=== PATIENT | female | born 1945 | race Caucasian/White ===

== ENCOUNTER → 2017-10-27 14:26 | Outpatient (CLI) | payer MEDICARE, BC, SELFPAY ==
--- NOTE | 2017-10-27 14:31 | VDLE_ITS ---
Reason For Study: LEG PAIN AND SWELLING RIGHT LEFT GSV is normal. GSV is normal. CFV is compressible, spontaneous, phasic, CFV is compressible, spontaneous, phasic, competent and demonstrates normal competent, and demonstrates normal augmentation. augmentation. FV is compressible, spontaneous, phasic, FV is compressible, spontaneous, phasic, competent and demonstrates normal competent and demonstrates normal augmentation. augmentation. POP V is compressible, spontaneous, phasic, POP V is compressible, spontaneous, phasic, competent and demonstrates normal competent and demonstrates normal augmentation. augmentation. T/P Trunk is compressible. T/P Trunk is compressible. PTV is compressible. PTV is compressible. RT PerV is compressible. LT PerV is compressible. Procedure Exam performed in department. A preliminary report was called and/or faxed to Dr. Macias. Interpretation Summary Deep veins of the lower extremities are bilaterally patent and compressible segmentally. There is no evidence of deep vein thrombosis on either side. Valvular competence appears intact within the proximal deep venous systems bilaterally. The greater saphenous veins appear bilaterally patent and compressible segmentally. Ordering Physician: Brandon Macias Performed By: Angelic Avelar RVT
== END ==
PROVIDERS: Family Provider Family Medicine; PCP Family Medicine; Visit Provider Family Medicine
DX: M79.661 Pain in right lower leg (principal); M79.662 Pain in left lower leg
CPT/HCPCS: 93970

== ENCOUNTER → 2018-10-26 14:57 | Outpatient (CLI) | payer MEDICARE, BC, SELFPAY ==
--- NOTE | 2018-10-26 15:04 | BI_ITS ---
MAMMOGRAPHY - BILATERAL SCREENING REASON FOR EXAM: Female, 73 years old. Routine annual screening examination. PERTINENT HISTORY: Non-contributory. TECHNIQUE: Digital bilateral breast bashir (3D mammographic acquisition) in the CC and MLO projections. 2-D mediolateral oblique (MLO) and craniocaudad (CC) views of both breasts were obtained. CAD: Full Field Digital Mammography with Computer Added Detection was performed. COMPARISON: Comparison is made with prior study dated March 16, 2017 and December 19, 2015. FINDINGS: Breast Composition: There are scattered areas of fibroglandular density. There are no dominant masses or suspicious calcifications. Stable benign-appearing bilateral axillary lymph nodes. No other significant abnormalities are identified. There has been no significant change since the prior study. BI/SCREENING MAMM (CAD), BILAT IMPRESSION: Stable bilateral screening mammogram. Yearly follow-up mammogram recommended. (A) ASSESSMENT CATEGORY: BIRADS Category 2: Benign. A letter regarding these results will be sent to the patient by the facility within 30 days. Approximately 10% of breast cancers are not detected by mammography. A normal mammogram should not delay biopsy of a clinically suspicious abnormality. [id number] Electronically Signed: Minh Collado, at 10:52 EDT , Service support ,
== END ==
PROVIDERS: Family Provider Family Medicine; PCP Family Medicine; Visit Provider Family Medicine
DX: Z12.31 Encounter for screening mammogram for malignant neoplasm of breast (principal)
CPT/HCPCS: 77063; 77067

== ENCOUNTER 2019-10-05 13:30 | Outpatient (RCR) | payer MEDICARE, OTHER, SELFPAY ==
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
--- NOTE | 2019-10-05 13:48 | HP.PTDCSUM ---
It has been my pleasure to treat SMOOTH CASTELLANOS referred by Ez Hines MD, with the diagnosis of Dizzyness. for a total of 2 visit(s). Discharge Date: 10/05/19 Please see the following information for a summary of their discharge status. Subjective: Dizzyness is significantly improved. No real dizzyness since last time. Gets quick unsteadiness at times but was there prior to concussion. Has turned in bed without dizzyness multiple times. Life adn activities are normal at this point. Cleaned freezer this am without difficulty. CORDOVA Pain Intensity (Out of 10): 0 % Improvement: 95 Objective/Function: - B hallpike lebron. - roll test. Better balance. Feeling good and goals met. Goal 1:: Abolish vertigo when turning in bed adn bednding over. Goal Progress: Goal Met Goal 2:: Pt feel 100% back to normal Goal Progress: 95% Goal 3:: 0 score on DHI Goal Progress: Progressing Plan: d/c Discharge Comments: Will contact doctor if dizzyness returns. If there are questions or concerns regarding this patient's physical therapy, please feel free to call me at [phone]. Thank you for the referral of this patient. Sincerely, Zen Ram, DPT, OCS, CSCS
== END 2019-10-05 19:00 | disposition home or self-care (01) ==
LOC: PT 13:30
PROVIDERS: PCP Family Medicine; Referring Provider Family Medicine; Visit Provider Family Medicine
DX: R51 Headache (principal); R42 Dizziness and giddiness
CPT/HCPCS: 97161; 97530

== ENCOUNTER 2021-10-22 16:30 | Outpatient (RCR) | payer MEDICARE, OTHER, SELFPAY ==
--- NOTE | 2021-10-08 14:49 | HP.PTEVAL ---
Patient's Visit Information SMOOTH CASTELLANOS is a 76 year old F referred to Physical Therapy by Dr. Dianna Figueroa DO with a diagnosis of BPV. Date of Evaluation: 10/08/21 Physical Therapist: Zen Ram, RONDA, OCS, CSCS - Visit Plan Frequency: 1x/Week Duration: 2-4 Weeks Plan: weekly as needed 2-4 weeks for positional treatments, exercises and monitorring. Vestibular rehab as needed. - Subjective September 25 got dizzy at 3 am and it was miserable that day. Bending over has caused her ear to pop for about three weeks prior. Has h/o positional vertigo prior but not in a long time. This time leaned head to left to look at clock and everything started to spin for a few seconds. laid still and felt a bit better but was hanging on tight when she got up to go to bathroom. Bending down to sit on toilet was dizzy. Called doctor the next day and went to doctor at 5 oclock and felt better but started spinning again that evening bending to get trash out. Saw Dr. Ramirez a few days later and cleaned out ears again and treated with positional maneuver. [place] better over the next 3-4 days. [place] somewhat better since but wants to make sure with therapy as it has helped before. Still rolling L can be obnoxious and cautious getting up. Sleeping is OK. No falls other than tripping over dog. Semiretired from office job. Has not missed work as she does not go in much but some mornings not up to par. Activities are normal but has to be cautious in everything moving head. 80% better. - Objective Walks normal and transfers normal with good balance. Cervical AROM and UE AROM WFL, L shoulder painful and harder to elevate. _ R hallpike lebron. + L hallpike lebron for slight dizzyness and quick up torsional nystagmus. Treated with Demarcus and then - HD. - Balance/Special Test Scores Functional Gait Assessment Score: 29 % Disability: 3.3400 Dizziness Score: 16 - Goals Goal 1:: Pt feel dizzyness is 100% abolished. Goal Time Frame: 2-4 Weeks Goal 2:: No hesitation with ambulating while looking up. 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 Rehabilitation Potential: Good - Anticipated Interventions Patient/Client Instruction: Educate patient on: Condition, Plan of Care For the Purpose of:: To increase tolerance to activity/condition/position, To improve ability of physical actions for home/community/work/leisure Comment: vestibular ex a nd maneuvers For the Purpose of:: To increase tolerance to activity/condition/position Thank you for the opportunity to evaluate your patient. For Medicare and Medicare HMO plans, please review the plan of care and approve it. It will need to be FAXED BACK to us at [phone] for Medicare purposes. For Medicare only, by signing this I certify the plan of care. Please let me know if there are questions or concerns regarding this plan of care. Physician Signature: Date:
--- NOTE | 2021-10-22 16:53 | HP.PTDCSUM ---
It has been my pleasure to treat SMOOTH CASTELLANOS referred by Dr. Dianna Figueroa DO, with the diagnosis of BPV for a total of 2 visit(s). Discharge Date: 10/22/21 Please see the following information for a summary of their discharge status. Subjective: Dizzyness is doing pretty good. Chiropraftor yesterday with rolling and moving on table and did not notice any thing weird or dizzyness. No dizzynes since treatment two weeks ago. Not avoiding any activites. Still bends and recovers and works in house. % Improvement: 100 Objective/Function: - B hallpike lebron. able to walk and move head confidently including bending and recovering and looking up. Goal 1:: Pt feel dizzyness is 100% abolished. Goal Progress: Goal Met Goal 2:: No hesitation with ambulating while looking up. Goal Progress: Goal Met Goal 3:: DHI score 2 or better Goal Progress: Goal Met Plan: d/c If there are questions or concerns regarding this patient's physical therapy, please feel free to call me at [phone]. Thank you for the referral of this patient. Sincerely, Zen Ram, DPT, OCS, CSCS Balance/Gait/Functional tests - Balance/Special Test Scores Functional Gait Assessment Score: 29 % Disability: 3.3400 Dizziness Score: 0
== END 2021-10-22 19:00 | disposition home or self-care (01) ==
LOC: PT 16:30
PROVIDERS: PCP Family Medicine; Referring Provider Family Medicine; Visit Provider Family Medicine
DX: H81.10 Benign paroxysmal vertigo, unspecified ear (principal)
CPT/HCPCS: 97161; 97164

== ENCOUNTER 2022-04-23 13:00 | Outpatient (RCR) | payer MEDICARE, OTHER, SELFPAY ==
--- NOTE | 2022-04-17 15:02 | HP.PTEVAL ---
Patient's Visit Information SMOOTH CASTELLANOS is a 76 year old F referred to Physical Therapy by NIKKI Pacheco with a diagnosis of vertigo. Date of Evaluation: 04/17/22 Physical Therapist: Zen Ram DPT, OCS, CSCS - Visit Plan Frequency: 1-2x /Week Duration: 2-4 Weeks Plan: 1-2x/week for 2-4 weeks as needed for. positional as needed and then balance checks prior to d/c - Subjective I got dizzy rolling in bed the other day to the left. 3 weeks ago she started getting dizzy. 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 Can squat down with eyes forward without much issue. Has to be careful with bending and rolling in bed. She spins for seconds. Has to hang on to things if she is on her feet. Balance is normally pretty good. Feels pretty normal in between episodes. Gets these episodes a couple times per day with head movements. Activities are normal once she gets her bearings. No falls. - Objective Walks I, transfers I bed and chair. Cervical AROM WFL and without pain. UE AROM WFL. Balance is good back to PT. R HD + up torsional nystagmus. delayed adn 12 second duration. Treated with Zoey then better then zoey again and near gone. - L HD. - Balance/Special Test Scores Dizziness Score: 32 - Goals Goal 1:: Dizzyness abolished with bending and turning in bed Goal Time Frame: 2-4 Weeks Goal 2:: FGA score for balance 25/30 for normal for age. Goal Time Frame: 2-4 Weeks Goal 3:: Pt I management and feel 100% better Goal Time Frame: 2-4 Weeks - Rehabilitation Potential Physical Therapy Diagnosis: BPPV R post Rehabilitation Potential: Good - Anticipated Interventions Patient/Client Instruction: Educate patient on: Condition, Plan of Care For the Purpose of:: To increase tolerance to activity/condition/position Therapeutic Exercise to Include: Balance training Comment: positional treatments and ex For the Purpose of:: To increase tolerance to activity/condition/position Thank you for the opportunity to evaluate your patient. For Medicare and Medicare HMO plans, please review the plan of care and approve it. It will need to be FAXED BACK to us at [phone] for Medicare purposes. For Medicare only, by signing this I certify the plan of care. Please let me know if there are questions or concerns regarding this plan of care. Physician Signature: Date:
--- NOTE | 2022-04-23 13:32 | HP.PTDCSUM ---
It has been my pleasure to treat SMOOTH CASTELLANOS referred by NIKKI Pacheco, with the diagnosis of vertigo for a total of 2 visit(s). Discharge Date: 04/23/22 Please see the following information for a summary of their discharge status. Subjective: Real good. She obeyed precautions well. Dizzyness gone when she woke up the next day. Since then has been really good. Still careful but no problems. Activities have been normal as far as dizzyness goes.Bending and turning in bed not a problem this week. No falls. % Improvement: 100 Objective/Function: - B hallpike lebron. - roll test. Walking well and happy. Normal balance, better than normal for her age Goal 1:: Dizzyness abolished with bending and turning in bed Goal Progress: Goal Met Goal 2:: FGA score for balance 25/30 for normal for age. Goal Progress: Goal Met Goal 3:: Pt I management and feel 100% better Goal Progress: Progressing Plan: 1-2x/week for 2-4 weeks as needed for. positional as needed and then balance checks prior to d/c If there are questions or concerns regarding this patient's physical therapy, please feel free to call me at [phone]. Thank you for the referral of this patient. Sincerely, Zen Ram, DPT, OCS, CSCS Balance/Gait/Functional tests - Balance/Special Test Scores Functional Gait Assessment Score: 30 % Disability: 0 Dizziness Score: 0
== END 2022-04-23 14:01 | disposition home or self-care (01) ==
LOC: PT 13:00
PROVIDERS: Referring Provider Registered Nurse; Visit Provider Registered Nurse
DX: R42 Dizziness and giddiness (principal)
CPT/HCPCS: 97161; 97164

== ENCOUNTER → 2022-09-17 | Outpatient (CLI) | payer MEDICARE, OTHER, SELFPAY ==
--- NOTE | 2022-09-17 13:21 | BI_ITS ---
MAMMOGRAPHY - BILATERAL SCREENING REASON FOR EXAM: Female, 76 years old. Routine annual screening examination. PERTINENT HISTORY: Non-contributory. TECHNIQUE: Digital bilateral breast swati (3D mammographic acquisition) in the CC and MLO projections. 2-D mediolateral oblique (MLO) and craniocaudad (CC) views of both breasts were obtained. CAD: Full Field Digital Mammography with Computer Added Detection was performed. COMPARISON: Comparison is made with prior study dated October 26, 2018 and March 16, 2017. FINDINGS: Breast Composition: There are scattered areas of fibroglandular density. There are no dominant masses or suspicious calcifications. Stable small benign-appearing bilateral axillary lymph nodes. No other significant abnormalities are identified. There has been no significant change since the prior study. BI/SCRN MAMM (CAD)W/SWATI BILAT IMPRESSION: Stable bilateral screening mammogram. Yearly follow-up mammogram recommended. (A) ASSESSMENT CATEGORY: BIRADS Category 2: Benign. A letter regarding these results will be sent to the patient by the facility within 30 days. Approximately 10% of breast cancers are not detected by mammography. A normal mammogram should not delay biopsy of a clinically suspicious abnormality. [id number] Electronically Signed: Minh Collado MD at 14:14 EST ,
== END | disposition home or self-care (01) ==
LOC: OPBI 13:16
PROVIDERS: Visit Provider Registered Nurse
DX: Z12.31 Encounter for screening mammogram for malignant neoplasm of breast (principal)
CPT/HCPCS: 77063; 77067

== ENCOUNTER 2023-04-27 08:25 | Day surgery (SDC) | payer MEDICARE, OTHER, SELFPAY ==
--- NOTE | 2023-04-26 09:00 | EKG12_ITS ---
Test Reason : PRE OP Blood Pressure : / mmHG Vent. Rate : 088 BPM Atrial Rate : 088 BPM P-R Int : 144 ms QRS Dur : 086 ms QT Int : 398 ms P-R-T Axes : 050 019 068 degrees QTc Int : 481 ms Normal sinus rhythm Low voltage QRS Borderline ECG Confirmed by MICHAEL SALAZAR, JESSICA ([id number]), map editor FRANK HUBBARD ([id number]) on 04/27/2023 12:50:12 PM Referred By: Triston Tom Confirmed By:JESSICA RODRIGUEZ MD
[2023-04-26 10:15] LABS: Anion Gap 6 (5-15); BUN 14 mg/dL (7-18); BUN/Creat Ratio 18.4 RATIO (10-20); Calcium,Total 9.7 mg/dL (8.5-10.1); Chloride 98 mmol/L (98-107); Creatinine, Serum 0.76 mg/dL (0.55-1.02); EST Glomerular Filtration Rate 79 mL/min (>60); Est Glom Filt Rate - Afr Amer 95 mL/min (>60); Glucose 107 mg/dL (74-106); Sodium Level 138 mmol/L (136-145)
[2023-04-27] VITALS (8 sets, daily range): BP systolic 146–171; BP diastolic 71–100; PULSE 79–102; RESP 16–18; TEMP 36.3–38.2; O2SAT 95–99; BMI 31.2
[2023-04-27] MEDS: Lactated Ringers 1,000 ML 15 ML IV ×2 (09:07→11:30)
[2023-04-27 09:19] LABS: Potassium 3.6 mmol/L (3.5-5.1)
--- NOTE | 2023-04-27 09:31 | DCINST_ITS ---
Discharge Instructions Diet Discharge Diet: No restrictions Activity Discharge Activity: Return to Normal Activity Dressing / Incision Call your doctor if your incision/area has: Sudden Increased Bleeding Additional Dressing/Incision Instructions:: saline to left nostril 4-5 times/day Follow Up Care Please Follow Up With: Robbie Tom MD When: 1 week Test Results: Test results from this visit will be discussed in further detail at your follow- up appointment, if applicable. Discharge Plan Admission Attending Provider: Robbie Tom Primary Care Provider: Marely Casarez NP Discharge Orders/Prescriptions Prescriptions: No Action diltiazem HCl 300 mg capsule,extended release 24hr 300 mg PO QHS Patient Comments: TAKE 1 CAPSULE BY MOUTH EVERY DAY pravastatin 40 mg tablet 40 mg PO QHS potassium chloride [Klor-Con M10] 10 mEq tablet,ER particles/crystals 10 meq PO QHS Patient Comments: TAKE 1 TABLET BY MOUTH EVERY DAY chlorthalidone 25 mg tablet 25 mg PO DAILY Patient Comments: TAKE 1 TABLET BY MOUTH EVERY DAY cholecalciferol (vitamin D3) [Vitamin D3] 25 mcg (1,000 unit) tablet 25 mcg PO DAILY ascorbic acid (vitamin C) [C-500] 500 mg tablet 500 mg PO DAILY methylsulfonylmethane-herbcmb1 Capsule 1 cap PO BID hydrocodone-acetaminophen 5-325 mg tablet 1 tab PO Q6H PRN PRN (Reason: pain) Patient Comments: TAKE 1 TABLET BY MOUTH EVERY 6 (SIX) hours NEEDED FOR PAIN Back and Body Pain Reliever 500-32.5 mg tablet 2 tab PO PRN esomeprazole magnesium [Nexium 24HR] 20 mg capsule,delayed release(DR/EC) 20 mg PO DAILY PRN (Reason: indigestion) Referrals / Follow Up: Brian Adams DO [Non-Staff] - Disposition Disposition (needs filled in before D/C Order can be placed): Home, Self Care
--- NOTE | 2023-04-27 09:54 | PCM.OPRPT ---
Problems Associated Problem List Diagnoses (1) Maxillary sinus mass: Report of Operation Date of Procedure: 04/27/23 Pre-Operative Diagnosis: left maxillary sinus mass Post-Operative Diagnosis: left maxillary sinus mass Surgery/Procedure Performed:: left maxillary antrostomy with removal of contents Surgeon: Robbie Tom Type of Anesthesia: General Description of Procedure: On the day of the procedure, after appropriate informed consent was obtained, the patient was brought to the operating room and placed in a supine position on the operating room table. The patient was placed under general endotracheal anesthesia by the anesthesiologist. The endotracheal tube was secured. the zero degree endoscope was used to evaluate the nasal cavity.? the superior attachment of the right and left middle turbinate and uncinate processes were injected with lidocaine/epinephrine.? the left nasal cavity was evaluated.? the middle turbinate was medialized.? a maxillary antrostomy and uncinectomy were performed with a vernell elevator and a jo ann cut.? the antrostomy was widened with a back-biter. a 70 degree endoscope was used to evaluate the maxillary sinus. it appeared to be a simple anterior/inferior mucous retention cyst with some fungal elements on top. a giraffe was used to take several biopsies. the sinus was flushed with saline and reexamined. the fungal elements could not all be reached, but some were evacuated from the sinus. hemostasis was achieved with suction cautery. maricruz and surgicel was placed. she was awoken from anesthesia and transferred to the PACU in stable condition.
--- NOTE | 2023-04-27 10:00 | NASAL_PTH ---
PATIENT: SMOOTH CASTELLANOS LOC: [facility] [place] U#:[id number] AGE/SX: 77/F ROOM: RE04/27/[address]: Dr. Robbie Tom MD : 1945 BED: DIS: 04/27/2023 SPEC #: [id number] RECD: 04/27/23 12:26 STATUS: ANKIT ARLIN #: [id number] BRIAN: 04/27/23 10:[address]: Robbie Tom DEPT: SURGICAL PATHOLOGY RECD BY: Rhonda Robert ENTERED: 04/27/23 12:55 SP TYPE: NASAL SPEC OTHR DR: Marely Casarez, ANMOL-Vesta Tissues: Ethmoid sinus, NOS Procedures: Surgery Specimen Level IV HEADER OPERATION: Biopsy, mass, sinus PRE-OP DIAGNOSIS: Chronic sinusitis TISSUE SUBMITTED: Left sinus mass MICROSCOPIC DIAGNOSIS Left sinus mass, biopsy: Polypoid fragments of respiratory mucosa and submucosa with mild chronic inflammation. Focal dystrophic microcalcifications and blood clots. No evidence of malignancy. See comment. AM:meghan 04/28/2023 COMMENT Clinical correlation is suggested. MICROSCOPIC DESCRIPTION Slides are reviewed. GROSS DESCRIPTION Received in fixative is one container labeled with the patient's name and designated left sinus mass. The specimen consists of multiple irregular fragments of pink-yu soft tissue that in aggregate measure 1.6 x 0.2 x 0.1 cm. The specimen is totally submitted in one cassette. / AM:meghan 04/27/2023 TC:3 CPT: 60557
[2023-04-27] MEDS: Lidocaine 2% /Epi 1:100 (20ml) 20 ML VIAL (10:23)
[2023-04-27] MEDS: Oxymetazoline 0.05% 1 SPRAY SPRAY.BTL 15 SPRAY (10:40)
== END 2023-04-27 13:16 | disposition home or self-care (01) ==
LOC: SDC 08:27 → AC 08:28
PROVIDERS: Anesthesiology; PCP Registered Nurse; Referring Provider Otolaryngology; Visit Provider Otolaryngology
PROC: (CPT 31267; principal; 2023-04-27 09:45)
DX: J32.8 Other chronic sinusitis (principal); I10 Essential (primary) hypertension; K21.9 Gastro-esophageal reflux disease without esophagitis; Z85.828 Personal history of other malignant neoplasm of skin
CPT/HCPCS: 31267; 00160; 36415; 80048; 84132; 88305; 93005; J7120; J2405

== ENCOUNTER → 2023-12-29 | Outpatient (CLI) | payer MEDICARE, OTHER, SELFPAY ==
--- NOTE | 2023-12-29 12:02 | BI_ITS ---
MAMMOGRAPHY - BILATERAL SCREENING REASON FOR EXAM: Female, 78 years old. Routine annual screening examination. PERTINENT HISTORY: Non-contributory. TECHNIQUE: Digital bilateral breast swati (3D mammographic acquisition) in the CC and MLO projections. 2-D mediolateral oblique (MLO) and craniocaudad (CC) views of both breasts were obtained. CAD: Full Field Digital Mammography with Computer Added Detection was performed. COMPARISON: Comparison is made with prior study September 17, 2022 and October 26, 2018. FINDINGS: Breast Composition: There are scattered areas of fibroglandular density. There are no dominant masses or suspicious calcifications. Stable bilateral containing axillary lymph nodes. No other significant abnormalities are identified. There has been no significant change since the prior study. BI/SCRN MAMM (CAD)W/SWATI BILAT IMPRESSION: Stable bilateral screening mammogram. Yearly follow-up mammogram recommended. (A) ASSESSMENT CATEGORY: BIRADS Category 2: Benign. A letter regarding these results will be sent to the patient by the facility within 30 days. Approximately 10% of breast cancers are not detected by mammography. A normal mammogram should not delay biopsy of a clinically suspicious abnormality. [id number] Electronically Signed: Minh Collado MD at 13:22 EDT ,
== END | disposition home or self-care (01) ==
LOC: OPBI 12:00
PROVIDERS: PCP Registered Nurse; Referring Provider Registered Nurse; Visit Provider Registered Nurse
DX: Z12.31 Encounter for screening mammogram for malignant neoplasm of breast (principal)
CPT/HCPCS: 77063; 77067